=== PATIENT | male | born 1965 | race Two or more races ===

== ENCOUNTER → 2024-12-19 | Outpatient (CLI) | payer MEDICAID, SELFPAY ==
--- NOTE | 2024-12-19 12:10 | XR_ITS ---
Examination: Abdomen AP single view Technique: AP portable supine abdomen, single view Exam date and time: December 19, 2024 1221 hours INDICATIONS: Abdominal pain 15 days, history kidney stone FINDINGS: Stool overlies the kidneys in the colon No renal or ureteral calculi No obstruction No free air IMPRESSION: Limited study with no renal calculi noted
== END | disposition home or self-care (01) ==
PROVIDERS: PCP Surgery; Referring Provider Surgery; Visit Provider Surgery
DX: R10.9 Unspecified abdominal pain (principal)
CPT/HCPCS: 74018